=== PATIENT | male | born 1945 | race Caucasian/White ===

== ENCOUNTER 2017-01-02 15:10 | Inpatient (IN) ==
[2017-01-02] MEDS ORDERED: Naloxone 0.4 MG/ML INJ IVP PRN (20:39)
[2017-01-02] MEDS ORDERED: Ketotifen Fumarate OP PRN (20:45)
[2017-01-02] MEDS ORDERED: *HR* Dextrose 50 % in Water (Syg) 50 ML SYRINGE IVP PRN (20:47)
[2017-01-02] MEDS ORDERED: Dextrose Gel 15 GM PO PRN ×2 (20:47)
[2017-01-02] MEDS ORDERED: D5% in Water 1,000 ML IVC PRN (20:47)
[2017-01-02] MEDS: Insulin LISPRO 300 UNITS/3 ML VIAL SQ SCH (22:13)
[2017-01-02 22:30] LABS: Hemoglobin A1C 5.9 %
--- NOTE | 2017-01-02 22:55 | Internal Med History&Physical ---
<Reynaldo Treviño - Last Filed: 01/02/17 22:51> Date of Encounter: 01/02/17 Time of Encounter: 22:51 Assessment and Plan (1) CVA (cerebral vascular accident) Current visit: Yes Status: Acute New Rt sided numbness with Rt sided pronator drift. No other focal neuro deficits noted. CT head negative. Continue stroke protocol. 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 Continue statin at home dose Qualifiers: Hyperlipidemia type: unspecified Qualified Code(s): E78.5 - Hyperlipidemia , unspecified (3) Diabetes Current visit: Yes Status: Acute H/O DM, on metformin at home. Stop metformin while inpatient, start LSSIC with ac/hs accuchecks Qualifiers: Diabetes mellitus type: type 2 Diabetes mellitus complication status: with circulatory complication Diabetes mellitus complication detail: with other circulatory complications Diabetes mellitus [employer] insulin use: without [employer]orer [employer] use Qualified Code(s): E11.59 - Type 2 diabetes mellitus with other circulatory complications (4) HTN (hypertension) Current visit: Yes Status: Acute He reports being hypertensive over the last month. Hypertensive this admission. We will allow for some permissive hypertension for reperfusion following CVA. Hydralazine 10 mg every 6 hours when necessary for SBP greater than 165. Continue to trend blood pressure Qualifiers: Hypertension type: essential hypertension Qualified Code(s): I10 - Essential (primary) hypertension (5) CAD (coronary artery disease) Current visit: Yes Status: Acute H/o CAD, on ASA and statin at home. Continue ASA and statin at home dose. Consider adding BB for HTN management. Qualifiers: Coronary Disease-Associated Artery/Lesion type: [place] artery [place] vs. transplanted heart: [place] heart Associated angina: without angina Qualified Code(s): I25.10 - Atherosclerotic heart disease of [place] coronary artery without angina pectoris (6) DVT prophylaxis Current visit: Yes Status: Acute Heparin 5000 units subcutaneous every 12 hours Internal Medicine - H&P: HPI Chief complaint: CVA Admitted From: Home Plans for Post Hospital Care: Home History of present illness: Mr. Emmanuel is a 71 year old male with a PMH of CAD, DM, HLD, HTN, [place] in 2013 and CABG with 4 vessel bypass graft. Presents to [facility] today with right arm and right leg numbness and right arm weakness. Reports that throughout the last month he has had trouble controlling his blood pressure. This morning he awoke and at 0400 and noticed that he had some weakness in his right arm and numbness in both right arm and right leg. He did not immediately seek attention as he assumed it would go away on its own. However when the numbness persisted he decided to go to the ED seek further care. He denies any vision changes, gait changes, slurred speech, facial droop , fever, chills. Admits to headache which is now resolved, and dizziness. CT of the head negative for acute intracranial abnormalities Past Med Surg Social Fam HX - Past Medical History Medical history: coronary artery disease, diabetes, hyperlipidemia, hypertension , myocardial infarction Psychiatric history: no psych history - Past Surgical History Surgical History: coronary bypass (CABG) - Social History Smoking Status: Never smoker Smokeless Tobacco Status: No Alcohol use: none Drug use: none - Family History Mother Name: LEONEL EMMANUEL Living Status: Age at : 49 Cause of : DIABETIC COMA Father Name: MADELAINE EMMANUEL Living Status: Age at : 64 Cause of : HEART. IN SLEEP Hx Family Cardiac Disorders: Yes Internal Medicine - H&P: Meds Ketotifen Fumarate 1 drop OP TID PRN #5 drops 11/06/16 [Rx] Lovastatin [Mevacor] 20 mg PO DAILY 11/06/16 [History] Metformin HCl [Glucophage] 1,000 mg PO TID 11/06/16 [History] 3 Allergy/AdvReac Type Severity Reaction Status Date / Time No Known Allergies Allergy Verified 11/06/16 12:20 All Systems PM: A 10-system review of systems was performed and is negative for pertinent findings except as documented above in the HPI. - Constitutional Constitutional: no chills, no fever(s), no night sweats - EENT Eyes: no change in vision, no discharge, no pain, no photophobia - Cardiovascular Cardiovascular ROS IM: no chest pain, no diaphoresis, no dyspnea, no dyspnea on exertion, no edema, no irregular heart rhythm, no lightheadedness, no orthopnea , no palpitations, no syncope - Respiratory Respiratory: no cough, no dyspnea, no dyspnea on exertion, no wheezing, no pain on inspiration, no chest congestion, no excessive phlegm production, no pain with cough - Gastrointestinal Gastrointestinal: no abdominal pain, no diarrhea, no hematemesis, no hematochezia, no melena, no nausea, no vomiting - Musculoskeletal Musculoskeletal ROS IM: as per HPI, muscle weakness, numbness, no arthralgias, no limited range of motion, no muscle cramps, no tingling - Integumentary Integumentary IM: no rash, no unusual bruising - Neurological Neurological ROS: dizziness (Has since resolved), focal weakness (Right arm), headache(s) (Has since resolved), numbness, no abnormal gait, no abnormal movements, no abnormal speech, no disequilibrium, no lack of coordination, no loss of vision, no memory loss, no radicular pain, no restless legs, no tingling , no other visual disturbances - Psychiatric Psychiatric: no anxiety, no confusion, no difficulty concentrating - Constitutional Vitals: Temp Pulse Resp BP Pulse Ox 98 F 71 18 170/98 97 01/02/17 19:55 01/02/17 19:55 01/02/17 19:55 01/02/17 19:55 01/02/17 19:55 General appearance: Present: cooperative, A&O X 3, no acute distress, answers questions appropriately - Head Head exam: Present: atraumatic, normocephalic - Eye Eye exam: Present: EOMI, PERRL, conjuntiva pink, sclera anicteric Pupils: Present: PERRL - Neck Neck exam general surgery: Present: supple, trachea midline. Absent: lymphadenopathy - Respiratory Respiratory exam: Present: CTAB. Absent: accessory muscle use, rales, rhonchi, wheezes - Cardiovascular Cardiovascular exam: Present: RRR, +S1, +S2. Absent: diastolic murmur, gallop, rubs, systolic murmur - GI/Abdominal GI/Abdominal exam: Present: normal bowel sounds, soft, no peritoneal signs. Absent: distended, tenderness - Extremities Exam Extremities exam: Present: warm, radial pulses palpable and symmetrical. Absent : calf tenderness, cyanotic, pedal edema - Neurological Exam Neurological exam: Present: oriented X3, pronater drift (Right arm pronator drift). Absent: CN II-XII intact, strengths equal and symetr throughout, facial droop, speech deficit - Expanded Neurological Exam Neurological exam expanded: Present: protecting the airway. Absent: expressive aphasia, receptive aphasia Patient oriented to: Present: person, place Speech: Present: fluid speech Cranial Nerves: EOM's intact PM: Normal, gag reflex PM: Normal, nystagmus PM: Normal, tongue deviation PM: Normal Cerebellar function: finger to nose: Normal, heel to sarabia: Normal, Romberg: Normal Upper motor neuron: Babinski sign: Normal, Ortiz neglect: Normal, pronator drift : Normal, sensory extinction: Normal Neuro motor strength exam: LUE: 5, RUE: 5, LLE: 5, RLE: 5 Coma Scale Eye Opening: Spontaneous Coma Scale Motor Response: Obeys Commands Coma Scale Verbal Response: Oriented Coma Scale Total: 15 - Skin Skin exam: Present: dry, intact Internal Med - H&P Results - Diagnostic Studies CT scan - head Status: image reviewed by me Additional comments: No acute intracranial abnormalities noted <Carlos Eduardo Brown - Last Filed: 01/03/17 03:36> Date of Encounter: 01/03/17 Internal Medicine - H&P: HPI History of present illness: Mr. Emmanuel is a 71 year old male All Systems PM: A 10-system review of systems was performed and is negative for pertinent findings except as documented above in the HPI. - Constitutional Vitals: Temp Pulse Resp BP Pulse Ox 98.1 F 81 16 141/81 98 01/03/17 00:36 01/03/17 00:36 01/03/17 00:36 01/03/17 00:36 01/03/17 00:36 Internal Med - H&P Results - Impressions ITS Impressions Chest X-Ray 01/02/17 23:02 IMPRESSION: The sternotomy wires are unchanged in configuration when compared to the previous exam, without evidence of a radiographic fracture or migration. If there is concern for sternal pathology, consider further evaluation with CT. D/ / Esequiel Alvarez MD / Esequiel Alvarez MD Interpreting Provider: Esequiel Alvarez MD - Attending Attestation I have seen and examined the patient independently. I have discussed with ROOF FOREMAN Mr Treviño regarding the management plan. Agree with the documentation. Patient presented with right arm and right leg numbness and tingling. Symptoms started from [address] head negative. Symptoms time out of TPA window already. Will place patient on cardiac monitoring, antiplatelet, and statin. Check echo, duplex carotid, and MRI in a.m.
[2017-01-03 04:11] LABS: Basophils % 0.4 %; Eosinophils # 0.2 K/mcL (0.0-0.6); Eosinophils % 2.5 %; Hematocrit 37.4 % (37.5-50.1); Immature Granulocytes % 0.1 % (0-4); Lymphocytes # 1.9 K/mcL (0.6-4.6); Lymphocytes % 23.7 %; Mean Corpuscular HGB Conc 34.8 g/dL (31.6-35.5); Mean Corpuscular Hemoglobin 31.7 pg (28.0-33.3); Mean Corpuscular Volume 91.2 fL (83.0-100.0); Mean Platelet Volume 12.4 fL (9.4-12.4); Monocytes # 0.8 K/mcL (0.0-1.3); Monocytes % 9.9 %; Neutrophils # 5.2 K/mcL (1.6-8.9); Platelet Count 192 K/mcL (140-400); Red Cell Distribution Width 13.4 % (11.5-14.5); Segmented Neutrophils % 63.4 %
[2017-01-03 04:28] LABS: BUN/Creatinine Ratio 16 (6-26); Blood Urea Nitrogen 17 mg/dL (8-26); Calcium 9.5 mg/dL (8.6-10.8); Carbon Dioxide 21 mEq/L (19-29); Chloride 101 mEq/L (98-109); Chol/HDL Ratio 3.6 (0-4.9); Cholesterol 172 mg/dL (< 200); Glucose 115 mg/dL (70-99); HDL Cholesterol 48 mg/dL (40-59); LDL Cholesterol,Calculated 90 mg/dL (0-99); Osmolality,Calculated 276 (280-300); Potassium 3.9 mEq/L (3.5-4.5); Sodium 132 mEq/L (136-145); Triglycerides 170 mg/dL (< 150); eGFR For African Americans > 60 (> 60); eGFR For Non-African Americans > 60 (> 60)
[2017-01-03] MEDS: *HR* Heparin 5,000 UNIT/ML VIAL SQ SCH ×2 (05:56→17:33)
[2017-01-03] MEDS: Insulin LISPRO 300 UNITS/3 ML VIAL SQ SCH ×4 (09:58→21:25)
[2017-01-03] MEDS: Aspirin Enteric Coated 81 MG Tablet PO SCH (09:58)
--- NOTE | 2017-01-03 10:15 | Internal Med Progress Note ---
<Dariela Santana - Last Filed: 01/03/17 15:30> Date of Encounter: 01/03/17 Time of Encounter: 10:12 - Assessment and plan (1) CVA (cerebral vascular accident) Current Visit: Yes Status: Acute Assessment and plan: Acute CVA to the posterior thalamus Patient reports new right sided numbness. CT head negative MRI showed acute infarct posterior left thalamus. Chronic infarcts in caudal and putamen. Moderate chronic microvascular white ischemic disease. Cavernous malformations. Patient has significant risk factors: [place] CABGx4 2013, DM, HTN, HLD, Patient currently reports that the numbness has resolved besides some residual right medial knee numbness. He denies vision change. -Neurology consulted -carotid Doppler ordered -echo ordered -continue aspirin and statin -urinalysis ordered -continues telemetry -NIHSS Q4H -PT/OT Qualifiers: CVA mechanism: occlusion Laterality of affected vessel: unspecified Qualified Code(s): I63.219 - Cerebral infarction due to unspecified occlusion or stenosis of unspecified vertebral arteries (2) HLD (hyperlipidemia) Current Visit: Yes Status: Acute Assessment and plan: History of hyperlipidemia -Continue statin Qualifiers: Hyperlipidemia type: unspecified Qualified Code(s): E78.5 - Hyperlipidemia , unspecified (3) Diabetes Current Visit: Yes Status: Acute Assessment and plan: History of diabetes on metformin -low sliding scale insulin -continue to monitor glucose Qualifiers: Diabetes mellitus type: type 2 Diabetes mellitus complication status: with circulatory complication Diabetes mellitus complication detail: with other circulatory complications Diabetes mellitus snf insulin use: without snf use Qualified Code(s): E11.59 - Type 2 diabetes mellitus with other circulatory complications (4) HTN (hypertension) Current Visit: Yes Status: Acute Assessment and plan: Patient reports being hypertensive over the last month. -Holding lisinopril to allow for reperfusion following CVA -hydralazine as needed for SBP greater than 165 Qualifiers: Hypertension type: essential hypertension Qualified Code(s): I10 - Essential (primary) hypertension (5) CAD (coronary artery disease) Current Visit: Yes Status: Acute Assessment and plan: History of [place] CABGx4 2013. On aspirin and statin -Simvastatin and asa Qualifiers: Coronary Disease-Associated Artery/Lesion type: [place] artery [place] vs. transplanted heart: [place] heart Associated angina: without angina Qualified Code(s): I25.10 - Atherosclerotic heart disease of [place] coronary artery without angina pectoris (6) DVT prophylaxis Current Visit: Yes Status: Acute Assessment and plan: Heparin - Subjective Interval history: Alert and oriented times 3 Laying down comfortably in bed in no acute distress he reports right medial knee numbness. She denies change in vision, headache, chest pain, shortness of breath. He has no complaints at this time he is requesting food as soon as he made - Constitutional Vitals: Temp Pulse Resp BP Pulse Ox 97.8 F 76 17 168/63 100 01/03/17 07:00 01/03/17 07:00 01/03/17 07:00 01/03/17 07:09 01/03/17 07:00 General appearance: Present: cooperative, A&O X 3, no acute distress, answers questions appropriately Exam: Gen.: Vitals noted. No acute distress. AAOx3 HEENT: oropharynx clear, Normocephalic, atraumatic Cardiac: RRR, no murmur, +S1/S2 Pulmonary: CTA bilaterally, no wheezes, rales or rhonchi, equal chest expansion Abdomen: soft, nontender, Bowel sounds noted, no guarding Extremities: no BLE edema, nontender calf, no cyanosis or clubbing Neuro: A&Ox3, moves all extremities, no focal deficits, numbness on right medial knee, sensation intact, strength 5/5 Psych: Appropriate mood and behavior Internal Medicine: Result - Labs CBC & Chem 7: 01/03/17 03:26 01/03/17 03:26 Labs: Short CBC 01/03/17 Range/Units 03:26 WBC 8.1 (4.3-11.1) K/mcL Hgb 13.0 (12.9-16.9) g/dL Hct 37.4 L (37.5-50.1) % Plt Count 192 (140-400) K/mcL Neutrophils # 5.2 (1.6-8.9) K/mcL BMP 01/03/17 03:26 Sodium 132 L Potassium 3.9 Chloride 101 Carbon Dioxide 21 BUN 17 Creatinine 1.08 Glucose 115 H Calcium 9.5 - Impressions Impressions Chest X-Ray 01/02/17 23:02 IMPRESSION: The sternotomy wires are unchanged in configuration when compared to the previous exam, without evidence of a radiographic fracture or migration. If there is concern for sternal pathology, consider further evaluation with CT. D/ / Esequiel Alvarez MD / Esequiel Alvarez MD Interpreting Provider: Esequiel Alvarez MD Brain MRI 01/03/17 20:38 IMPRESSION: 1. There is an acute infarct involving the posterior left thalamus, likely contributing to the patient's right-sided numbness. 2. Chronic infarcts are noted in the caudate heads and putamen. Moderate chronic microvascular white matter ischemic disease is noted supratentorially. 3. There is an intra-axial, nonenhancing lesion noted in the right cerebral peduncle, corresponding to the calcified lesion noted on the previous exam. This is compatible with a cavernous malformation. 4. No other intracranial mass is seen. D/ / 01/03/2017 09:15:17 Esvin Parada MD / [place] Interpreting Provider: Esvin Parada MD Consult Discharge Plan - Plan Referrals: Keira Rosas, PHOTOGRAPHIC PROCESS WORKER [Primary Care Provider] - <Maycol Persaud - Last Filed: 01/03/17 16:05> Date of Encounter: 01/03/17 - Constitutional Vitals: Temp Pulse Resp BP Pulse Ox 97.8 F 80 17 170/89 95 01/03/17 07:00 01/03/17 15:00 01/03/17 15:00 01/03/17 15:00 01/03/17 15:00 Internal Medicine: Result - Labs CBC & Chem 7: 01/03/17 03:26 01/03/17 03:26 Labs: Short CBC 01/03/17 Range/Units 03:26 WBC 8.1 (4.3-11.1) K/mcL Hgb 13.0 (12.9-16.9) g/dL Hct 37.4 L (37.5-50.1) % Plt Count 192 (140-400) K/mcL Neutrophils # 5.2 (1.6-8.9) K/mcL BMP 01/03/17 03:26 Sodium 132 L Potassium 3.9 Chloride 101 Carbon Dioxide 21 BUN 17 Creatinine 1.08 Glucose 115 H Calcium 9.5 - Impressions Impressions Chest X-Ray 01/02/17 23:02 IMPRESSION: The sternotomy wires are unchanged in configuration when compared to the previous exam, without evidence of a radiographic fracture or migration. If there is concern for sternal pathology, consider further evaluation with CT. D/ / Esequiel Alvarez MD / Esequiel Alvarez MD Interpreting Provider: Esequiel Alvarez MD Head CTA 01/03/17 13:00 IMPRESSION: Calcified atherosclerotic plaque in the cavernous internal carotid arteries results in mild bilateral cavernous ICA stenosis. Otherwise, unremarkable CTA of the head. D/ / 01/03/2017 13:59:14 Joseph Hess MD / Elida Hilton Interpreting Provider: Joseph Hess MD Brain MRI 01/03/17 20:38 IMPRESSION: 1. There is an acute infarct involving the posterior left thalamus, likely contributing to the patient's right-sided numbness. 2. Chronic infarcts are noted in the caudate heads and putamen. Moderate chronic microvascular white matter ischemic disease is noted supratentorially. 3. There is an intra-axial, nonenhancing lesion noted in the right cerebral peduncle, corresponding to the calcified lesion noted on the previous exam. This is compatible with a cavernous malformation. 4. No other intracranial mass is seen. D/ / 01/03/2017 09:15:17 [facility] Provider: Esvin Parada MD - Attending Attestation neurology recommendations appreciated consider adding Plavix vs switching to Aggrenox as the patient has been very compliant in the past with aspirin and still developed a CVA I examined this patient and my medical decision-making was reviewed with the Resident Physician. I agree with the documented findings, disposition and treatment plan as described except to the extent set forth below.
--- NOTE | 2017-01-03 10:29 | Neurology - Consult Note ---
<Abundio Hubbard - Last Filed: 01/03/17 11:55> Date of Encounter: 01/03/17 Time of Encounter: 09:45 Assessment and Plan (1) CVA (cerebral vascular accident) Status: Acute Patient found to have acute CVA the posterior thalamus, corresponding to patient describes symptoms. Physical/neuro examination unremarkable except for mild paresthesia in the bottom of his right foot. MRI confirmation of stroke seen. We will likely need to assess potential source of CVA given old infarcts have been seen. Given the location this likely represents lacunar infarct and would recommend aggressive risk factor reduction. Recommend aggressive risk factor reductions Increase to full aspirin and statin PT/OT if needed Recommend cardiac telemetry to assess for occult arrhythmia Recommend echocardiogram and carotid Dopplers to try to identify source Will obtain CTA Qualifiers: Laterality of affected vessel: unspecified (2) Cavernous malformation Status: Acute Cavernous malformation incidentally found on CT examination and further clarified with MRI with and without contrast. Patient appears a symptomatic from this at this time. Likely will require follow-up for surveillance in the future. History of Present Illness Chief complaint: Right Sided Numbness HPI: Mr. Emmanule is a 71 year old male with past medical history of coronary artery disease with previous ND, diabetes mellitus, hypertension, and hyperlipidemia who was transferred to [place] from the [facility] due to concern of acute CVA. Patient reports that he woke up yesterday morning on 01/02/17 at about 2 in the morning and noticed having significant right-sided weakness in his upper and lower extremities. He got ready and went to work that day and had been worked for 5 hours before saying something to one of his coworkers. He tried to rest with little improvement of symptoms decided best to present to the hospital. He denies having any weakness, facial asymmetry, confusion, or slurred speech. She reports having only mild headache. A CT examination was performed in the [facility] that showed no acute abnormality, a chronic moderate ischemic white matter changes, old small infarcts, and 15 mm calcified meningioma. Over the course the patient reports having resolution of much of his symptoms, but still states he has some residual numbness in the bottom of his foot. He continues to deny having any focal weakness, vision changes, and only mild headache. An MRI was performed with and without contrast that showed acute infarct involving the posterior left thalamus, chronic infarcts in the caudate heads and putamen, and intra-axial, nonenhancing lesion in the right cerebral peduncle likely represents cavernous malformation, corresponding to location of the previous lesion seen. Past Med Surg Social Fam HX - Past Medical History Medical history: coronary artery disease, diabetes, hyperlipidemia, hypertension , myocardial infarction Psychiatric history: no psych history - Past Surgical History Surgical History: coronary bypass (CABG) - Social History Smoking Status: Never smoker Smokeless Tobacco Status: No Alcohol use: none Drug use: none - Family History Mother Name: LEONEL EMMANUEL Living Status: Age at : 49 Cause of : DIABETIC COMA Father Name: MADELAINE EMMANUEL Living Status: Age at : 64 Cause of : HEART. IN SLEEP Hx Family Cardiac Disorders: Yes Medications and Allergies Lovastatin [Mevacor] 20 mg PO DAILY 11/06/16 [History] Metformin HCl [Glucophage] 1,000 mg PO BID 11/06/16 [History] Aspirin 81 mg PO DAILY 01/03/17 [History] Carvedilol 12.5 mg PO BID 01/03/17 [History] Ibuprofen [Motrin] 200 mg PO Q4-6H PRN 01/03/17 [History] Lisinopril [Zestril] 20 mg PO DAILY 01/03/17 [History] Metformin HCl [Glucophage] 500 mg PO 1200 01/03/17 [History] Mv-Mn/FA/Vit K/Lycop/Lut/Coq10 [Daily Multivitamin Capsule] 1 tab PO DAILY 01/03 [History] 3 Allergy/AdvReac Type Severity Reaction Status Date / Time No Known Allergies Allergy Verified 11/06/16 12:20 Review of Systems: Gen: Denies fever, denies chills, denies weakness CV: Denies chest pain, denies palpitations Resp: Denies shortness of breath, MSK: denies arthralgia, denies muscle weakness Neuro: Reports mild headache, denies confusion, denies focal weakness, reports resolving right-sided numbness, denies tingling, denies vision changes Skin: Denies bruising, denies rash Physical Examination - Vital Signs Vital Signs: Initial Vital Signs Temp Pulse Resp BP Pulse Ox 97.9 F 71 18 169/94 97 01/02/17 17:05 01/02/17 17:05 01/02/17 17:05 01/02/17 17:05 01/02/17 17:05 - Exam Exam: General: Cooperative, pleasant, no acute distress, alert and oriented 3, answers questions appropriately HEENT: Normocephalic, atraumatic, neck supple, trachea midline, Conjunctiva pink , sclera anicteric, EOMI, PERRL, oral mucosa moist, no orophargeal erythema or exudates Respiratory: No accessory muscle usage, clear to auscultation bilaterally, no wheezes/rhonchi/rales appreciated Cardiovascular: Regular rate and rhythm, S1 and S2 present, no murmurs/rubs/ gallops/clicks appreciated Extremities: No calf tenderness, noncyanotic, no pedal edema appreciated, warm, lower extremity pulses palpable and symmetrical Neurological: Alert and oriented 3, no facial droop, no focal deficits, cranial nerves II through XII grossly intact bilaterally, rapid alternating movements smooth with good earline, finger to nose smooth and accurate, sensation reduced in right big toe and bottom of right foot, normal otherwise, strength 5/5 in upper and lower extremities bilaterally, DTRs 2/4 in Achilles, patellar, brachioradialis, biceps, and triceps, Romberg normal, gait smooth without limp Skin: Dry, intact, normal color Results - Laboratory Findings CBC and BMP: 01/03/17 03:26 01/03/17 03:26 Abnormal lab findings: Abnormal lab results RBC 4.10 M/mcL (4.19-5.50) L 01/03/17 03:26 Hct 37.4 % (37.5-50.1) L 01/03/17 03:26 Sodium 132 mEq/L (136-145) L 01/03/17 03:26 Glucose 115 mg/dL (70-99) H 01/03/17 03:26 POC Glucose 109 (58-89) H 01/02/17 21:48 Hemoglobin A1c 5.9 % (-5.6) H 01/02/17 21:50 Calculated Osmolality 276 (280-300) L 01/03/17 03:26 Triglycerides 170 mg/dL (< 150) H 01/03/17 03:26 VLDL Cholesterol, Calc 34 mg/dL (< 31) H 01/03/17 03:26 Consult Discharge Plan - Plan Instructions: Lovastatin (By mouth), Aspirin (By mouth), Ischemic Stroke (GEN) Additional Instructions: Continue home medications such as aspirin and lovastatin follow-up with neurology in 2 to 3 weeks returned hospital should you develop new numbness and tingling, weakness, shortness of breath, chest pain, confusion Referrals: Keira Rosas CNP [Primary Care Provider] - Maria Elena Bryan MD [Partnered Physician] - <Maria Elena Bryan - Last Filed: 01/06/17 08:14> Date of Encounter: 01/06/17 Assessment and Plan (1) CVA (cerebral vascular accident) Status: Acute Qualifiers: CVA mechanism: occlusion Laterality of affected vessel: unspecified Qualified Code(s): I63.539 - Cerebral infarction due to unspecified occlusion or stenosis of unspecified posterior cerebral artery (2) Cavernous malformation Status: Acute History of Present Illness HPI: Mr. Emmanuel is a 71 year old male All Systems: A 10-system review of systems was performed and is negative for pertinent findings except as documented above in the HPI. Physical Examination - Vital Signs Vital Signs: Initial Vital Signs Temp Pulse Resp BP Pulse Ox 97.9 F 71 18 169/94 97 01/02/17 17:05 01/02/17 17:05 01/02/17 17:05 01/02/17 17:05 01/02/17 17:05 Results - Laboratory Findings CBC and BMP: 01/04/17 05:25 01/04/17 05:25 Abnormal lab findings: Abnormal lab results Sodium 131 mEq/L (136-145) L 01/04/17 05:25 Glucose 151 mg/dL (70-99) H 01/04/17 05:25 POC Glucose 175 (58-89) H 01/04/17 11:54 Hemoglobin A1c 5.9 % (-5.6) H 01/02/17 21:50 Calculated Osmolality 278 (280-300) L 01/04/17 05:25 Triglycerides 170 mg/dL (< 150) H 01/03/17 03:26 VLDL Cholesterol, Calc 34 mg/dL (< 31) H 01/03/17 03:26
--- NOTE | 2017-01-03 15:47 | Neurology - Consult Note ---
Date of Encounter: 01/03/17 Time of Encounter: 15:37 Assessment and Plan (1) CVA (cerebral vascular accident) Current Visit: Yes Status: Acute Patient has likely left thalamic infarct, likely secondary to small vessel etiology. CTA of brain showed no significant intracranial significant stenosis. Will await echocardiography and carotid artery duple. Keep him on Aspirin 81mg daily, Continue statin therapy. Qualifiers: CVA mechanism: occlusion Laterality of affected vessel: unspecified Qualified Code(s): I63.219 - Cerebral infarction due to unspecified occlusion or stenosis of unspecified vertebral arteries (2) Cavernous malformation Current Visit: Yes Status: Acute This appears to be an incidental finding. The vascular lesion is at the right cerebral peduncle which would cause left sided weakness or 3 th nerve palsy which he does not have. There is no evidence of cerebral hemorrhage. Will follow up with him as an outpatient in 2-3 weeks. and next step would be referal to [facility] neurosurgery but it is my opinion that no invasive intervention is needed but close clinical monitoring History of Present Illness Chief complaint: right sided paresthesia HPI: Mr. Emmanuel is a 71 year old male with PMH significant for HTN, cardiomyopathy , HTN, DM, hyperlipidemia, CAD, s/p CABG who developed acute onset of right leg numbness. This occurred one day prior to admission. He woke up early that day and felt numbness to his right leg, and a little bit to his right hand as well. However, he woke up early and went to work anyway for 5 hours. He noticed some frontal headache at the time. He went back home and tried to sleep away the way and apparently the symptoms did not go away when he woke up. He went to [facility] and had CT of head showed possible meningioma at the right cereral peduncle. MRI of brain was completed and showed left thalamic infarct. MRI of brain MR/MR head/brain wo/w con IMPRESSION: 1. There is an acute infarct involving the posterior left thalamus, likely contributing to the patient's right-sided numbness. 2. Chronic infarcts are noted in the caudate heads and putamen. Moderate chronic microvascular white matter ischemic disease is noted supratentorially. 3. There is intra-axial, nonenhancing lesion noted in the right cerebral peduncle, corresponding to the calcified lesion noted on the previous exam. This is compatible with a cavernous malformation. 4. No other intracranial mass is seen. CT/CT angio head IMPRESSION: Calcified atherosclerotic plaque in the cavernous internal carotid arteries results in mild bilateral cavernous ICA stenosis. Otherwise, unremarkable CTA of the head. Past Med Surg Social Fam HX - Past Medical History Medical history: coronary artery disease, diabetes, hyperlipidemia, hypertension , myocardial infarction Psychiatric history: no psych history - Past Surgical History Surgical History: coronary bypass (CABG) - Social History Smoking Status: Never smoker Smokeless Tobacco Status: No Alcohol use: none Drug use: none - Family History Mother Name: LEONEL EMMANUEL Living Status: Age at : 49 Cause of : DIABETIC COMA Father Name: MADELAINE EMMANUEL Living Status: Age at : 64 Cause of : HEART. IN SLEEP Hx Family Cardiac Disorders: Yes Medications and Allergies Lovastatin [Mevacor] 20 mg PO DAILY 11/06/16 [History] Metformin HCl [Glucophage] 1,000 mg PO BID 11/06/16 [History] Aspirin 81 mg PO DAILY 01/03/17 [History] Carvedilol [Carvedilol] 12.5 mg PO BID 01/03/17 [History] Ibuprofen [Motrin] 200 mg PO Q4-6H PRN 01/03/17 [History] Lisinopril [Zestril] 20 mg PO DAILY 01/03/17 [History] Metformin HCl [Glucophage] 500 mg PO 1200 01/03/17 [History] Mv-Mn/FA/Vit K/Lycop/Lut/Coq10 [Daily Multivitamin Capsule] 1 tab PO DAILY 01/03 [History] 3 Allergy/AdvReac Type Severity Reaction Status Date / Time No Known Allergies Allergy Verified 11/06/16 12:20 All Systems: A 10-system review of systems was performed and is negative for pertinent findings except as documented above in the HPI. Physical Examination - Vital Signs Vital Signs: Initial Vital Signs Temp Pulse Resp BP Pulse Ox 97.9 F 71 18 169/94 97 01/02/17 17:05 01/02/17 17:05 01/02/17 17:05 01/02/17 17:05 01/02/17 17:05 - Constitutional General appearance: comfortable - Neurologic Sensorimotor examination: intact Detailed motor examination: full strength in all major muscle groups Motor examination - right side: 5/5: deltoids, biceps, triceps, wrist flexion, wrist extension, utility driver, hip flexors, tibialis Anterior, quadriceps, toe extension (EHL), plantarflexion Motor examination - left side: 07/19: deltoids, biceps, triceps, wrist flexion, wrist extension, hip flexors, utility driver, quadriceps, tibialis Anterior, toe extension (EHL), plantarflexion Detailed sensory examination: intact Posture: other (None) Reflex and gait examination: intact Reflexes: Biceps: 1+, Triceps: 1+, Brachioradialis: 1+, Patella: 1+, Achilles: 1 + Mental Status Examination: awake, alert, oriented to person, oriented to place, oriented to time, follows commands appropriately, answers questions appropriately, no agnosia, no aphasia, no aproxia Cranial nerve examination: PERRL, EOMI, visual faria intact, corneal reflexes brisk symmetrically, sensory to face intact, mastication intact, no facial asymmetry is present, no dysarthria, hearing is intact symmetrically, soft palate elevates bilaterally upon phonation, gag reflex intact, flexes SCM and trapezius muscles symmetrically with full power, tongue protrudes midline, no atrophy or facial fasiculations present Results - Laboratory Findings CBC and BMP: 01/03/17 03:26 01/03/17 03:26 Abnormal lab findings: Abnormal lab results RBC 4.10 M/mcL (4.19-5.50) L 01/03/17 03:26 Hct 37.4 % (37.5-50.1) L 01/03/17 03:26 Sodium 132 mEq/L (136-145) L 01/03/17 03:26 Glucose 115 mg/dL (70-99) H 01/03/17 03:26 POC Glucose 157 (58-89) H 01/03/17 12:33 Hemoglobin A1c 5.9 % (-5.6) H 01/02/17 21:50 Calculated Osmolality 276 (280-300) L 01/03/17 03:26 Triglycerides 170 mg/dL (< 150) H 01/03/17 03:26 VLDL Cholesterol, Calc 34 mg/dL (< 31) H 01/03/17 03:26 Consult Discharge Plan - Plan Referrals: Keira Rosas, SERVICE RIG OPERATOR [Primary Care Provider] -
[2017-01-03] MEDS ORDERED: Melatonin 3 MG TABLET PO PRN (16:56)
[2017-01-04 05:39] LABS: Basophils % 0.5 %; Eosinophils # 0.2 K/mcL (0.0-0.6); Eosinophils % 2.5 %; Hematocrit 40.4 % (37.5-50.1); Hemoglobin 14.3 g/dL (12.9-16.9); Immature Granulocytes % 0.4 % (0-4); Lymphocytes # 2.1 K/mcL (0.6-4.6); Lymphocytes % 27.2 %; Mean Corpuscular HGB Conc 35.4 g/dL (31.6-35.5); Mean Corpuscular Hemoglobin 32.1 pg (28.0-33.3); Mean Corpuscular Volume 90.6 fL (83.0-100.0); Mean Platelet Volume 11.5 fL (9.4-12.4); Monocytes # 0.7 K/mcL (0.0-1.3); Monocytes % 8.8 %; Neutrophils # 4.8 K/mcL (1.6-8.9); Platelet Count 201 K/mcL (140-400); Red Blood Count 4.46 M/mcL (4.19-5.50); Red Cell Distribution Width 13.3 % (11.5-14.5); Segmented Neutrophils % 60.6 %
[2017-01-04 05:54] LABS: BUN/Creatinine Ratio 18 (6-26); Blood Urea Nitrogen 20 mg/dL (8-26); Calcium 9.7 mg/dL (8.6-10.8); Carbon Dioxide 20 mEq/L (19-29); Chloride 100 mEq/L (98-109); Glucose 151 mg/dL (70-99); Osmolality,Calculated 278 (280-300); Potassium 4.1 mEq/L (3.5-4.5); Sodium 131 mEq/L (136-145); eGFR For African Americans > 60 (> 60); eGFR For Non-African Americans > 60 (> 60)
[2017-01-04] MEDS: *HR* Heparin 5,000 UNIT/ML VIAL SQ SCH (06:03)
[2017-01-04 06:55] VITALS: BP 147/77
--- NOTE | 2017-01-04 08:53 | Discharge Summary ---
<Dariela Santana - Last Filed: 01/04/17 13:14> Date of Encounter: 01/04/17 Time of Encounter: 08:51 - Discharge Diagnosis (1) CVA (cerebral vascular accident) Priority: Primary Status: Acute Comments: Acute CVA to the posterior thalamus Patient reports new right sided numbness. CT head negative MRI showed acute infarct posterior left thalamus. Chronic infarcts in caudal and putamen. Moderate chronic microvascular white ischemic disease. Cavernous malformations. Patient has significant risk factors: [place] CABGx4 2013, DM, HTN, HLD, Patient currently reports that the numbness has resolved besides some residual right medial knee numbness. He denies vision change. Qualifiers: CVA mechanism: occlusion Laterality of affected vessel: unspecified Qualified Code(s): I63.539 - Cerebral infarction due to unspecified occlusion or stenosis of unspecified posterior cerebral artery (2) HLD (hyperlipidemia) Priority: Secondary Status: Acute Qualifiers: Hyperlipidemia type: unspecified Qualified Code(s): E78.5 - Hyperlipidemia , unspecified (3) Diabetes Priority: Secondary Status: Acute Qualifiers: Diabetes mellitus type: type 2 Diabetes mellitus complication status: with circulatory complication Diabetes mellitus complication detail: with other circulatory complications Diabetes mellitus marine oil terminal superintendent insulin use: without marine oil terminal superintendent use Qualified Code(s): E11.59 - Type 2 diabetes mellitus with other circulatory complications (4) HTN (hypertension) Priority: Secondary Status: Acute Qualifiers: Hypertension type: essential hypertension Qualified Code(s): I10 - Essential (primary) hypertension (5) CAD (coronary artery disease) Priority: Secondary Status: Acute Qualifiers: Coronary Disease-Associated Artery/Lesion type: [place] artery [place] vs. transplanted heart: [place] heart Associated angina: without angina Qualified Code(s): I25.10 - Atherosclerotic heart disease of [place] coronary artery without angina pectoris (6) DVT prophylaxis Priority: Secondary Status: Acute - Discharge Medications Home Medications: Lovastatin [Mevacor] 20 mg PO DAILY 11/06/16 [History] Metformin HCl [Glucophage] 1,000 mg PO BID 11/06/16 [History] Aspirin 81 mg PO DAILY 01/03/17 [History] Carvedilol 12.5 mg PO BID 01/03/17 [History] Ibuprofen [Motrin] 200 mg PO Q4-6H PRN 01/03/17 [History] Lisinopril [Zestril] 20 mg PO DAILY 01/03/17 [History] Metformin HCl [Glucophage] 500 mg PO 1200 01/03/17 [History] Mv-Mn/FA/Vit K/Lycop/Lut/Coq10 [Daily Multivitamin Capsule] 1 tab PO DAILY 01/03 [History] Allergies/Adverse Reactions: 3 Allergy/AdvReac Type Severity Reaction Status Date / Time No Known Allergies Allergy Verified 11/06/16 12:20 Procedures/tests Complete & Pending: Procedures Performed prior 72 hours Category Date Time Status CTA Head [CT angio head] [CT] Routine Cat Scan 01/03/17 13:00 Draft MR head/brain wo/w con [MR] Routine MRI 01/03/17 20:38 Completed ECG 12 lead ECG [ECG] Stat Y 01/02/17 20:44 Ordered EV carotid duplex imaging BI Routine Y 01/02/17 20:45 Completed EV echocardiogram Routine Y 01/03/17 11:52 Completed Date of admission: 01/02/17 16:49 Primary care physician: Keira Rosas CNP Consults: 01/02/17 20:39 Consult to Neurology [CONS] Routine Consulting Provider: [facility] Reason for Consult: cva Call Completed: No 01/02/17 20:41 Consult to Occupational Therapy [CONS] Routine Comment: Evaluate, develop and implement POC Reason for Consult: CVA Consult to Physical Therapy [CONS] Routine Comment: Evaluate, develop and implement POC Reason for Consult: CVA Discharging clinician: Maycol Persaud - Patient Status Disposition: Home, Self-Care Condition: Good Functional capacity at discharge: independent ambulation Overall status at discharge: patient is back to baseline - Discharge Instructions Follow Up With: Keira Rosas CNP [Primary Care Provider] - Maria Elena Bryan MD [Partnered Physician] - Additional Instructions: Continue home medications such as aspirin and lovastatin follow-up with neurology in 2 to 3 weeks returned hospital should you develop new numbness and tingling, weakness, shortness of breath, chest pain, confusion - Diet and Activity Activity: resume usual activities as tolerated Diet: regular diet Hospital course: Mr. Snyder is a 71 year old male with a PMH of CAD, DM, HLD, HTN, [place] in 2013 and CABG with 4 vessel bypass graft. Presents to [facility] today with right arm and right leg numbness and right arm weakness. Reports that throughout the last month he has had trouble controlling his blood pressure. This morning he awoke and at 0400 and noticed that he had some weakness in his right arm and numbness in both right arm and right leg. He did not immediately seek attention as he assumed it would go away on its own. However when the numbness persisted he decided to go to the ED seek further care. He denies any vision changes, gait changes, slurred speech, facial droop , fever, chills. Admits to headache which is now resolved, and dizziness. CT of the head negative for acute intracranial abnormalities. He was admitted the hospital. He was continued on status and an aspirin. He was found to have an Acute CVA to the posterior thalamus. MRI showed acute infarct posterior left thalamus. Chronic infarcts in caudal and putamen. Moderate chronic microvascular white ischemic disease. Cavernous malformations. Neurology was consulted and evaluated the patient. The patient reported that the numbness has resolved besides some residual right medial knee numbness. He denies vision change. Carotid Doppler was normal. Echocardiogram showed LVEF 50-55%, mild diastolic dysfunction, no intracardiac shunt. CTA head showed mild bilateral cavernous ICA stenosis. The patient upon discharge exhibited no focal deficits. He denied weakness, change in vision, generalized numbness, chest pain, shortness of breath, confusion. He is to follow up with neurology outpatient in 2 to 3 weeks. He was instructed to continue taking aspirin and his cholesterol medication. The patient was instructed to return to the hospital should he develop new confusion, weakness, numbness, shortness of breath, chest pain. The patient was alert and oriented times 3 with full capacity. He stayed clear understanding of the treatment plan and all questions were answered. - Time Spent with Patient Total time spent providing and/or coordinating discharge services: Greater than 30 minutes (40 minutes) - Constitutional Vitals: Temp Pulse Resp BP Pulse Ox 98.3 F 81 15 147/77 96 01/04/17 06:50 01/04/17 06:50 01/04/17 06:50 01/04/17 06:50 01/04/17 06:50 General appearance: Present: cooperative, A&O X 3, no acute distress, answers questions appropriately Exam: Gen.: Vitals noted. No acute distress. AAOx3 HEENT: oropharynx clear, Normocephalic, atraumatic Neck: Supple. No adenopathy. Cardiac: RRR, no murmur, +S1/S2 Pulmonary: CTA bilaterally, no wheezes, rales or rhonchi, equal chest expansion Abdomen: soft, nontender, Bowel sounds noted, no guarding Extremities: no BLE edema, nontender calf, no cyanosis or clubbing Neuro: A&Ox3, moves all extremities, no focal deficits, sensation intact, strength 5/5, numbness palm of hand and sole of foot Psych: Appropriate mood and behavior <Maycol Persaud H - Last Filed: 01/04/17 13:30> Date of Encounter: 01/04/17 Procedures/tests Complete & Pending: Procedures Performed prior 72 hours Category Date Time Status CTA Head [CT angio head] [CT] Routine Cat Scan 01/03/17 13:00 Draft MR head/brain wo/w con [MR] Routine MRI 01/03/17 20:38 Completed ECG 12 lead ECG [ECG] Stat Y 01/02/17 20:44 Ordered EV carotid duplex imaging BI Routine Y 01/02/17 20:45 Completed EV echocardiogram Routine Y 01/03/17 11:52 Completed Date of admission: 01/02/17 16:49 Primary care physician: Keira Rosas CNP Consults: 01/02/17 20:39 Consult to Neurology [CONS] Routine Consulting Provider: [facility] Reason for Consult: cva Call Completed: No 01/02/17 20:41 Consult to Occupational Therapy [CONS] Routine Comment: Evaluate, develop and implement POC Reason for Consult: CVA Consult to Physical Therapy [CONS] Routine Comment: Evaluate, develop and implement POC Reason for Consult: CVA Hospital course: Mr. Snyder is a 71 year old male - Time Spent with Patient Total time spent providing and/or coordinating discharge services: - Constitutional Vitals: Temp Pulse Resp BP Pulse Ox 98.3 F 81 15 147/77 96 01/04/17 06:50 01/04/17 06:50 01/04/17 06:50 01/04/17 06:50 01/04/17 06:50 - Attending Attestation Neurology recommended to continue aspirin and follow up as an outpatient I examined this patient and my medical decision-making was reviewed with the Resident Physician. I agree with the documented findings, disposition and treatment plan as described except to the extent set forth below.
[2017-01-04] MEDS: Insulin LISPRO 300 UNITS/3 ML VIAL SQ SCH (09:23)
[2017-01-04] MEDS: Aspirin Enteric Coated 81 MG Tablet PO SCH (09:23)
== END 2017-01-04 15:26 | disposition home or self-care (01) | DRG 64 ==
LOC: SUATTDRO 16:49 → 2NENU 16:49
PROVIDERS: ADMIT Internal Medicine; ATTEND Internal Medicine

== ENCOUNTER 2018-09-24 12:22 | Inpatient (IN) ==
[2018-09-24] MEDS ORDERED: traMADol 50 MG TABLET PO PRN (15:15)
[2018-09-24] MEDS ORDERED: Naloxone 0.4 MG/ML INJ IVP PRN (15:15)
[2018-09-24] MEDS ORDERED: *HR* Dextrose 50 % in Water (Syg) 50 ML SYRINGE IVP PRN (15:22)
[2018-09-24] MEDS ORDERED: Dextrose Gel 15 GM/37.5 ML TUBE PO PRN ×2 (15:22)
[2018-09-24] MEDS ORDERED: D5% in Water 1,000 ML IVC PRN (15:22)
[2018-09-24] MEDS ORDERED: Ringers Solution, Lactated 1,000 ML IVC SCH (15:30)
--- NOTE | 2018-09-24 15:56 | Internal Med History&Physical ---
Date of Encounter: 09/24/18 Time of Encounter: 15:49 Internal Medicine - H&P: HPI Chief complaint: left sided weakness Admitted From: Home Plans for Post Hospital Care: Home History of present illness: Mr. Snyder is a 73 year old male PMH of CVA in 2017, HTN, HLD, and DM. Patient transferred to the hospital from [place] where he presented due to left sided weakness. Patient reports yesterday during the day he did some work on the sun around his house. In the afternoon after he was done with those chores he felt light headed and weak but he thought it was related to being on the sun most of the day. States that around 6pm he started feeling left sided weakness on the upper and lower extremities. Denies slurred speech, face droop or palpitations. Stated that today morning as the left sided weakness did no improved he decided to go the ED. He report he is left handed and because of the weakness of the left side he cannot even write his name. Stated the weakness on the lower extremity has slightly improved. Denies nausea, vomiting but reports slight headache. Denies chest pain, shortness of breath or abdominal pain. Past Med Surg Social Fam HX - Past Medical History Medical history: coronary artery disease, CVA, diabetes, hyperlipidemia, hypertension, myocardial infarction Psychiatric history: no psych history - Past Surgical History Surgical History: coronary bypass (CABG) - Social History Smoking Status: Never smoker Smokeless Tobacco Status: No Alcohol use: none Drug use: none - Family History Mother Living Status: Father Living Status: Hx Family Cardiac Disorders: Yes Internal Medicine - H&P: Meds Lovastatin [Mevacor] 20 mg PO DAILY 11/06/16 [History] Aspirin 81 mg PO DAILY 01/03/17 [History] Carvedilol 12.5 mg PO BID 01/03/17 [History] Ibuprofen [Motrin] 200 mg PO Q4-6H PRN 01/03/17 [History] Lisinopril [Zestril] 20 mg PO BID 01/03/17 [History] Mv-Mn/FA/Vit K/Lycop/Lut/Coq10 [Daily Multivitamin Capsule] 1 tab PO DAILY 01/03/17 [History] Acetaminophen/Diphenhydramine [Percogesic 325-12.5 mg Tablet] 2 each PO HS 09/24/18 [History] Aspirin [Lo-Dose Aspirin EC] 81 mg PO DAILY 09/24/18 [History] L. Acidophilus/Pectin, [place] [Acidophilus Probiotic Capsule] 1 each PO DAILY 09/24/18 [History] Sitagliptin Phosphate [Januvia] 50 mg PO DAILY 09/24/18 [History] Allergy/AdvReac Type Severity Reaction Status Date / Time No Known Allergies Allergy Verified 09/24/18 08:42 All Systems PM: A 10-system review of systems was performed and is negative for pertinent findings except as documented above in the HPI. - Constitutional Constitutional: weakness (left sided. ), no chills, no fever(s) - EENT Eyes: no blurry vision, no irritation Nose, mouth and throat: no dry mouth, no mouth pain - Breasts Breasts: no mass, no pain - Cardiovascular Cardiovascular ROS IM: lightheadedness, no chest pain, no dyspnea, no irregular heart rhythm, no orthopnea, no palpitations - Respiratory Respiratory: no cough, no wheezing - Gastrointestinal Gastrointestinal: no abdominal pain, no nausea, no vomiting - Genitourinary Genitourinary ROS male: no dysuria, no hematuria, no nocturia, no urinary frequency, no urinary incontinence, no urinary urgency - Musculoskeletal Musculoskeletal ROS IM: no back pain, no numbness, no tingling - Integumentary Integumentary IM: no erythema - Neurological Neurological ROS: focal weakness (left upper and lower extremities), headache(s) (mild. ), no numbness, no tingling - Psychiatric Psychiatric: no anxiety, no hopelessness, no irritability - Endocrine Endocrine IM: no cold intolerance, no excessive sweating - Hematologic/Lymphatic Hematologic/Lymphatic: no lymphadenopathy - Allergic/Immunologic Allergic/Immunologic: no uticaria, no GI upset with certain foods - Constitutional Exam: Vitals: Reviewed General: Alert and oriented x4. In mild distress due to left sided weakness Cardiovascular: RRR, normal S1 & S2, no rubs, murmurs or gallops. Lungs: CTA b/l, no wheezes or crackles. Abdomen: Soft, non-tender, no rigidity. Extremities: strength 4/5 in the left upper extr, 5/5 in the right upper and lower extr. Neurological: Slight left sided facial dropping. CN II-XII intact Rest of the physical exam is non contributory - Assessment and Plan (1) Stroke-like symptoms Current Visit: Yes Status: Acute Assessment and plan: patient with a Hx of previous CVA in 2017 on aspirin. presenting to the hospital with left sided weakness since yesterday. Plan patient is off TpA window MRI of the brain consider TTE w/ saline following MRI report continue Aspirin 81mg/PO daily started on clopidogrel 75mg/po daily Lipid panel A1C Hydralazine 5mg/IV Q6HR for SBP >190 or DBP >110 PT/OT consider neurology consult pending MRI report will continue lovastatin 40mg/PO HS. (2) CAD (coronary artery disease) Current Visit: No Status: Chronic Assessment and plan: patient on aspirin 81mg/PO daily. started on clopidogrel 75mg/PO daily. Qualifiers: Coronary Disease-Associated Artery/Lesion type: [place] artery [place] vs. transplanted heart: [place] heart Associated angina: without angina Qualified Code(s): I25.10 - Atherosclerotic heart disease of [place] coronary artery without angina pectoris (3) CVA (cerebral vascular accident) Current Visit: No Status: Chronic Assessment and plan: CVA 2017. plan of care as per problem #1. Qualifiers: CVA mechanism: unspecified Qualified Code(s): I63.9 - Cerebral infarction, unspecified (4) DVT prophylaxis Current Visit: No Status: Chronic Assessment and plan: heparin subQ (5) Diabetes Current Visit: No Status: Chronic Assessment and plan: carbs controlled diet. A1c ordered. Lispro low dose sliding scale. levemir 5 units HS. Qualifiers: Diabetes mellitus type: type 2 Diabetes mellitus remote computer terminal operator insulin use: without remote computer terminal operator use Diabetes mellitus complication status: with circulatory complication Diabetes mellitus complication detail: with other circulatory complications Qualified Code(s): E11.59 - Type 2 diabetes mellitus with other circulatory complications (6) HLD (hyperlipidemia) Current Visit: No Status: Chronic Assessment and plan: patient on lovastatin 40mg/PO daily Qualifiers: Hyperlipidemia type: unspecified Qualified Code(s): E78.5 - Hyperlipidemia, unspecified (7) HTN (hypertension) Current Visit: No Status: Chronic Assessment and plan: will resume home dose of carvedilol 12.5mgPO BID. Qualifiers: Hypertension type: essential hypertension Qualified Code(s): I10 - Essential (primary) hypertension (8) СВЕТЛАНА (acute kidney injury) Current Visit: Yes Status: Acute Assessment and plan: possible due to low pre-load, patient reported being on the sun for a prolong period of time yesterday and with not addecuated oral intake. will start patient on 0.9%NS @75ml/hr x1 litter. will re-assess kidney function tomorrow if there is not improvement consider retro-peritoneal us. - Time Spent With Patient Total time spent is greater than 50% in coordination of care (as documented) at patient's floor/unit and/or counseling patient: Greater than 35 minutes (45)
[2018-09-24] MEDS ORDERED: 0.9 % Sodium Chloride 1,000 ML IVC SCH (16:00)
[2018-09-24] MEDS: Insulin LISPRO 300 UNITS/3 ML VIAL SQ SCH (17:26)
[2018-09-24] MEDS: *HR* Heparin 5,000 UNIT/ML VIAL SQ SCH (17:31)
[2018-09-24] MEDS: Aspirin Enteric Coated 81 MG Tablet PO SCH (17:34)
[2018-09-24 19:00] LABS: Estimated Average Glucose 151 mg/dl
[2018-09-25 01:15] LABS: Basophils % 0.4 %; Eosinophils # 0.3 K/mcL (0.0-0.6); Eosinophils % 3.2 %; Immature Granulocytes % 0.1 % (0-4); Lymphocytes # 1.6 K/mcL (0.6-4.6); Lymphocytes % 20.1 %; Mean Corpuscular HGB Conc 33.3 g/dL (31.6-35.5); Mean Corpuscular Hemoglobin 31.4 pg (28.0-33.3); Mean Corpuscular Volume 94.2 fL (83.0-100.0); Mean Platelet Volume 11.8 fL (9.4-12.4); Monocytes # 0.8 K/mcL (0.0-1.3); Monocytes % 10.3 %; Neutrophils # 5.1 K/mcL (1.6-8.9); Platelet Count 150 K/mcL (140-400); Red Blood Count 4.14 M/mcL (4.19-5.50); Red Cell Distribution Width 12.6 % (11.5-14.5); Segmented Neutrophils % 65.9 %; White Blood Count 7.8 K/mcL (4.3-11.1)
[2018-09-25 01:22] LABS: Prothrombin Time 11.2 Seconds (9.4-12.1)
[2018-09-25 01:25] LABS: Activated Partial Thrombo Time 32.1 Seconds (26.0-36.0)
[2018-09-25 01:33] LABS: Calcium 9.2 mg/dL (8.6-10.3); Chol/HDL Ratio 3.6 (0-4.9); Phosphorous 3.5 mg/dL (2.7-4.5)
[2018-09-25] MEDS: Insulin DETEMIR 100 UNIT/ML X5UNITS SQ SCH ×2 (06:20→21:20)
[2018-09-25] MEDS: *HR* Heparin 5,000 UNIT/ML VIAL SQ SCH ×2 (06:23→17:41)
[2018-09-25] MEDS ORDERED: 0.9 % Sodium Chloride 1,000 ML IVC SCH (08:00)
[2018-09-25] MEDS: Aspirin Enteric Coated 81 MG Tablet PO SCH (08:30)
[2018-09-25] MEDS: Insulin LISPRO 300 UNITS/3 ML VIAL SQ SCH ×3 (08:31→17:41)
--- NOTE | 2018-09-25 09:29 | Neurology - Consult Note ---
<JoceKristian Bell - Last Filed: 09/25/18 09:18> Date of Encounter: 09/25/18 Time of Encounter: 09:19 Assessment and Plan (1) CVA (cerebral vascular accident) Current Visit: Yes Status: Acute Patient presented with strokelike symptoms, acute lacunar infarct identified in posterior limb of right internal capsule Patient was previously on aspirin and lovastatin, these were continued and Plavix was added He does still have left-sided weakness but it is improved, residual right facial droop Head and neck CTA showed mild disease in bilateral carotids and P2 segment, no intervention recommended Echocardiogram pending, however infarct pattern on MRI does not appear embolic Recommend continuation of aspirin/statin/Plavix with transition to Plavix/statin at discharge Agree with PT/OT consultation and recommendations Other than echocardiogram do not anticipate any further inpatient intervention or testing, and patient can likely be discharged on medical therapy with outpatient neurology follow-up pending echocardiogram results Further recommendations per Dr. Harrington Qualifiers: CVA mechanism: unspecified Qualified Code(s): I63.9 - Cerebral infarction, unspecified (2) Cavernous malformation Current Visit: No Status: Acute Mass in right cerebral peduncle noted incidentally on brain MRI Appearance is consistent with cavernous malformation Intervention is recommended in the setting of seizure, hemorrhage, or associated neurologic deficit Since this malformation is asymptomatic observation is recommended History of Present Illness Chief complaint: stroke HPI: Mr. Snyder is a 73 year old male with past medical history of hypertension, hyperlipidemia, diabetes mellitus, coronary artery disease status post CABG, previous CVA in 2017. At home he takes aspirin and lovastatin and carvedilol. On 09/23/18 he was working outside in the sun and began to feel lightheaded, he went inside to cool off and began having left upper extremity and left lower extremity weakness. These symptoms carried over into the morning of 09/24/18 and he presented to [place]. He did not have any other associated symptoms such as slurred speech or facial droop, numbness or tingling, fever or chills, confusion or other altered mental status, chest pain or shortness of breath, abdominal pain/nausea/vomiting. Head and neck CTA were performed at [place] demonstrating mild bilateral carotid bifurcation disease and a moderate to severe short segment irregularity involving the P2 segment, but otherwise without acute abnormality. [facility] telemedicine was consulted who did not recommend TPA or vascular intervention, instead recommended transfer to [place] for stroke workup. He was admitted to the hospitalist service here, aspirin was continued Plavix was started, lovastatin 20 was increased to lovastatin 40, and MRI of the brain was ordered and neurology service was consulted. MRI of the brain demonstrated acute lacunar infarct within the posterior limb of the right internal capsule as well as a incidentally noted mass within the right cerebral peduncle consistent with a cavernoma. On my exam the patient complains of continued but improved left upper and lower extremity weakness. He reports residual right upper and lower extremity "heaviness" residual from his previous CVA in 2017. He does not follow outpatient with a neurologist. He denies any new or worsened symptoms this morning and has no acute complaints other than left upper and lower extremity weakness. Past Med Surg Social Fam HX - Past Medical History Medical history: coronary artery disease, CVA, diabetes, hyperlipidemia, hypertension, myocardial infarction Psychiatric history: no psych history - Past Surgical History Surgical History: coronary bypass (CABG) - Social History Smoking Status: Never smoker Smokeless Tobacco Status: No Alcohol use: none Drug use: none - Family History Mother Living Status: Father Living Status: Hx Family Cardiac Disorders: Yes Medications and Allergies Lovastatin [Mevacor] 20 mg PO DAILY 11/06/16 [History] Aspirin 81 mg PO DAILY 01/03/17 [History] Carvedilol 12.5 mg PO BID 01/03/17 [History] Ibuprofen [Motrin] 200 mg PO Q4-6H PRN 01/03/17 [History] Lisinopril [Zestril] 20 mg PO BID 01/03/17 [History] Mv-Mn/FA/Vit K/Lycop/Lut/Coq10 [Daily Multivitamin Capsule] 1 tab PO DAILY 01/03/17 [History] Acetaminophen/Diphenhydramine [Percogesic 325-12.5 mg Tablet] 2 each PO HS 09/24/18 [History] Aspirin [Lo-Dose Aspirin EC] 81 mg PO DAILY 09/24/18 [History] L. Acidophilus/Pectin, [place] [Acidophilus Probiotic Capsule] 1 each PO DAILY 09/24/18 [History] Sitagliptin Phosphate [Januvia] 50 mg PO DAILY 09/24/18 [History] Allergy/AdvReac Type Severity Reaction Status Date / Time No Known Allergies Allergy Verified 09/24/18 08:42 All Systems: The remainder of the systems were reviewed and are negative Review of Systems: 10 point review of systems negative except as otherwise mentioned in history of present illness. Physical Examination - Vital Signs Vital Signs: Initial Vital Signs Temp Pulse Resp BP 98.1 F 89 16 141/74 09/24/18 15:21 09/24/18 15:21 09/24/18 15:21 09/24/18 15:21 - Exam Exam: General Examination: *CONSTITUTIONAL: Alert and oriented x3, no acute distress *GENERAL APPEARANCE OF PATIENT appears healthy and well groomed *EYES: pupils equal, round, reactive to light and accommodation, conjunctiva clear without masses or ulcerations *ASSESSMENT OF MUSCLE STRENGTH IN THE UPPER AND LOWER EXTREMITIES Left deltoid, bicep, tricep, production support consultant strength 4/5. Right hip flexor, quadriceps, anterior tibialis, plantar flexion 5/5. Left hip flexor 4/5. Left quadricep, anterior tibialis, plantar flexion 5/5. *MUSCLE TONE IN THE UPPER AND LOWER EXTREMITIES normal. No abnormal movements, fasciculations or atrophy identified. Neurological: *ORIENTATION to person, situation, time and place *LANGUAGE AND FUNCTION no significant aphasia or dysarthia was noted *ATTENTION AND CONCENTRATION are normal *FUND OF KNOWLEDGE aware of current events, past history, vocabulary *MENTAL attention span and concentration normal. *CN II visual faria intact *CN III,IV, PERRLA horizontal nystagmus present, otherwise normal *CN V shows normal sensation and jaw opens symmetrically. *CN VII right lower face droop and weakness, otherwise normal and symmetrical facial movement *CN VIII shows no significant hearing loss on exam *CN IX-X palate elevated symmetrically *CN XI normal strength in the sternocleidomastoid muscles, symmetrical shoulder shrugging. *CN XII tongue protruded in the midline, with normal strength and movement. *SENSORY EXAMINATION light touch and deep pressure intact and symmetrical *GAIT intact *CEREBELLAR TESTING normal finger to nose testing *PAIN LEVEL 0/10 Results - Laboratory Findings CBC and BMP: 09/25/18 00:38 09/25/18 00:38 Abnormal lab findings: Abnormal lab results RBC 4.14 M/mcL (4.19-5.50) L 09/25/18 00:38 Sodium 134 mEq/L (136-145) L 09/25/18 00:38 Carbon Dioxide 21 mEq/L (23-29) L 09/25/18 00:38 Creatinine 1.68 mg/dL (0.70-1.30) H 09/25/18 00:38 Est GFR ( Amer) 49 (> 60) L 09/25/18 00:38 Est GFR (Non-Af Amer) 40 (> 60) L 09/25/18 00:38 Glucose 115 mg/dL (70-105) H 09/25/18 00:38 POC Glucose 130 mg/dL (70-99) H 09/25/18 08:26 Hemoglobin A1c 6.9 % (-5.6) H 09/24/18 17:31 Triglycerides 166 mg/dL (< 150) H 09/25/18 00:38 VLDL Cholesterol, Calc 33 mg/dL (< 31) H 09/25/18 00:38 Consult Discharge Plan - Plan Referrals: Rosa Augustine CNP [Primary Care Provider] - <Giana Harrington I - Last Filed: 09/25/18 12:00> Date of Encounter: 09/25/18 Assessment and Plan (1) CVA (cerebral vascular accident) Current Visit: Yes Status: Acute Pt was seen and examined, my medical decision was reviewed with the Resident Physician, I agree with the documented findings, disposition and treatment plan, as described except to the extent set forth below patient is stable did have a lacunar infarct internal capsule likely related to small vessel disease Suggest continue on Plavix at the time of discharge only along with statin If echogram is negative okay to discharge from neurology standpoint Giana Harrington MD Qualifiers: CVA mechanism: unspecified Qualified Code(s): I63.9 - Cerebral infarction, unspecified History of Present Illness HPI: Mr. Snyder is a 73 year old male All Systems: The remainder of the systems were reviewed and are negative Physical Examination - Vital Signs Vital Signs: Initial Vital Signs Temp Pulse Resp BP 98.1 F 89 16 141/74 09/24/18 15:21 09/24/18 15:21 09/24/18 15:21 09/24/18 15:21 Results - Laboratory Findings CBC and BMP: 09/25/18 00:38 09/25/18 00:38 Abnormal lab findings: Abnormal lab results RBC 4.14 M/mcL (4.19-5.50) L 09/25/18 00:38 Sodium 134 mEq/L (136-145) L 09/25/18 00:38 Carbon Dioxide 21 mEq/L (23-29) L 09/25/18 00:38 Creatinine 1.68 mg/dL (0.70-1.30) H 09/25/18 00:38 Est GFR ( Amer) 49 (> 60) L 09/25/18 00:38 Est GFR (Non-Af Amer) 40 (> 60) L 09/25/18 00:38 Glucose 115 mg/dL (70-105) H 09/25/18 00:38 POC Glucose 130 mg/dL (70-99) H 09/25/18 08:26 Hemoglobin A1c 6.9 % (-5.6) H 09/24/18 17:31 Triglycerides 166 mg/dL (< 150) H 09/25/18 00:38 VLDL Cholesterol, Calc 33 mg/dL (< 31) H 09/25/18 00:38
--- NOTE | 2018-09-25 13:25 | Internal Med Progress Note ---
Hospitalist Progress Note - Encounter Date of Encounter: 09/25/18 Time of Encounter: 13:23 - Subjective Interval History: I have seen and evaluated the patient at bedside. patient reported improvement on the weakness of the left upper extremity but reports he is still having problems holding a spoon or a pen. denies headache, nausea, vomiting or abdomina l pain. denies chest pain. - Exam Vitals: Temp Pulse Resp BP Pulse Ox 98.3 F 72 16 117/54 95 09/25/18 10:14 09/25/18 10:14 09/25/18 10:14 09/25/18 10:14 09/25/18 10:14 Exam: Vitals: Reviewed General: Alert and oriented x4. In no distress Cardiovascular: RRR, normal S1 & S2, no rubs, murmurs or gallops. Lungs: CTA b/l, no wheezes or crackles. Abdomen: Soft, non-tender, no rigidity. NABS in all 4 quadrants Extremities: strength 4/5 in the left upper extr, 5/5 in the right upper and lower extr. Neurological: CN II-XII intact Rest of the physical exam is non contributory - Assessment and Plan (1) CVA (cerebral vascular accident) Current Visit: Yes Status: Acute Assessment and Plan: MR/MR head/brain wo con IMPRESSION: Acute lacunar infarct within the posterior limb of right internal capsule. 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 The findings were sent to the [facility]iology Results Communication [facility] at 4:57 pm on 09/24/2018to be communicated to a licensed caregiver. Plan continue dual antiplatelets therapy with aspirin and plavix on a statin PT/OT ordered neurology recommendations appreciated TTE pending. (2) CAD (coronary artery disease) Current Visit: No Status: Chronic Assessment and Plan: patient on dual anti-platelet therapy. (3) Diabetes Current Visit: No Status: Chronic Assessment and Plan: blood sugar is well controlled on short and long acting insulin coverage. (4) HLD (hyperlipidemia) Current Visit: No Status: Chronic Assessment and Plan: continue lovastatin 40mg/PO daily (5) HTN (hypertension) Current Visit: No Status: Chronic Assessment and Plan: Blood pressure is well controlled on carvedilol 12.5 mg by mouth twice a day. (6) СВЕТЛАНА (acute kidney injury) Current Visit: Yes Status: Acute Assessment and Plan: slightly improvement on his kidney function following IV hydration. continue IV fluids on 0.95NS @75ml/hr retroperitoneal us ordered to r/o obstruction as a possible cause of the СВЕТЛАНА. will re-assess kidney function tomorrow morning DVT Prophylaxis: On heparin subQ - Summary of Assessment and Plan Summary of Assessment and Plan: Patient to remain in the hospital due to СВЕТЛАНА and acute lacunar stroke. - Time Spent with Patient Total time spent is greater than 50% in coordination of care (as documented) at patient's floor/unit and/or counseling patient: Greater than 35 minutes (40) Plan of Care Discussed with: patient (and the nurse.) Internal Medicine: Result - Labs CBC & Chem 7: 09/25/18 00:38 09/25/18 00:38 Labs: Short CBC 09/25/18 Range/Units 00:38 WBC 7.8 (4.3-11.1) K/mcL Hgb 13.0 (12.9-16.9) g/dL Hct 39.0 (37.5-50.1) % Plt Count 150 (140-400) K/mcL Neutrophils # 5.1 (1.6-8.9) K/mcL BMP 09/25/18 00:38 Sodium 134 L Potassium 4.0 Chloride 102 Carbon Dioxide 21 L BUN 21 Creatinine 1.68 H Glucose 115 H Calcium 9.2 - ABG Interpretation ABG results: PT/INR, D-dimer PT 11.2 Seconds (9.4-12.1) 09/25/18 00:38 - Impressions Impressions Brain MRI 09/24/18 15:20 IMPRESSION: Acute lacunar infarct within the posterior limb of right internal capsule. 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 The findings were sent to the Radiology Results Communication Center at 4:57 pm on 09/24/2018to be communicated to a licensed caregiver. D/ / Cullen Quevedo MD / Cullen Quevedo MD Interpreting Provider: Cullen Quevedo MD Consult Discharge Plan - Plan Referrals: Rosa Augustine, ORACLE DBA [Primary Care Provider] - (1) CVA (cerebral vascular accident) Qualifiers: CVA mechanism: unspecified Qualified Code(s): I63.9 - Cerebral infarction, unspecified (2) CAD (coronary artery disease) Qualifiers: Coronary Disease-Associated Artery/Lesion type: [place] artery [place] vs. transplanted heart: [place] heart Associated angina: without angina Qualified Code(s): I25.10 - Atherosclerotic heart disease of [place] coronary artery without angina pectoris (3) Diabetes Qualifiers: Diabetes mellitus type: type 2 Diabetes mellitus nursing home insulin use: without dry room operator use Diabetes mellitus complication status: with circulatory complication Diabetes mellitus complication detail: with other circulatory complications Qualified Code(s): E11.59 - Type 2 diabetes mellitus with other circulatory complications (4) HLD (hyperlipidemia) Qualifiers: Hyperlipidemia type: unspecified Qualified Code(s): E78.5 - Hyperlipidemia, unspecified (5) HTN (hypertension) Qualifiers: Hypertension type: essential hypertension Qualified Code(s): I10 - Essential (primary) hypertension
[2018-09-26] MEDS: *HR* Heparin 5,000 UNIT/ML VIAL SQ SCH (05:00)
[2018-09-26 05:23] LABS: Calcium 9.2 mg/dL (8.6-10.3); Magnesium 1.8 mg/dL (1.6-2.6); Phosphorous 3.1 mg/dL (2.7-4.5); Potassium 4.2 mEq/L (3.5-5.1)
[2018-09-26 07:29] VITALS: BP 139/73
--- NOTE | 2018-09-26 09:09 | Discharge Summary ---
- NOTES TO OUTPATIENT PROVIDER Notes to Outpatient Provider: Have a repeat BMP within a week of hospital discharge. creat at dc 1.58 from 1.99 on admission Date of Encounter: 09/26/18 Time of Encounter: 09:07 - Discharge Diagnosis (1) CVA (cerebral vascular accident) Priority: Primary Status: Acute Assessment and Plan: MR/MR head/brain wo con IMPRESSION: Acute lacunar infarct within the posterior limb of right internal capsule. Qualifiers: CVA mechanism: unspecified Qualified Code(s): I63.9 - Cerebral infarction, unspecified (2) CAD (coronary artery disease) Priority: Secondary Status: Chronic Qualifiers: Coronary Disease-Associated Artery/Lesion type: [place] artery [place] vs. transplanted heart: [place] heart Associated angina: without angina Qualified Code(s): I25.10 - Atherosclerotic heart disease of [place] coronary artery without angina pectoris (3) Diabetes Priority: Secondary Status: Chronic Qualifiers: Diabetes mellitus type: type 2 Diabetes mellitus extermination supervisor insulin use: without residential use Diabetes mellitus complication status: with circulatory complication Diabetes mellitus complication detail: with other circulatory complications Qualified Code(s): E11.59 - Type 2 diabetes mellitus with other circulatory complications (4) HLD (hyperlipidemia) Priority: Secondary Status: Chronic Qualifiers: Hyperlipidemia type: unspecified Qualified Code(s): E78.5 - Hyperlipidemia, unspecified (5) HTN (hypertension) Priority: Secondary Status: Chronic Qualifiers: Hypertension type: essential hypertension Qualified Code(s): I10 - Essential (primary) hypertension (6) СВЕТЛАНА (acute kidney injury) Priority: Secondary Status: Acute Hospital course: Mr. Snyder is a 73 year old male PMH of CVA in 2017, HTN, HLD, and DM. Patient transferred to the hospital from [place] where he presented due to left sided weakness. Patient admitted to the hospital due to stroke like symptoms r/o CVA and СВЕТЛАНА. CT/CT angio neck IMPRESSION: Mild bilateral carotid bifurcation disease with calcification but no evidence of hemodynamic stenosis. No evidence of vertebrobasilar significant disease. MR/MR head/brain wo con IMPRESSION: Acute lacunar infarct within the posterior limb of right internal capsule. 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 Patient was on aspirin, clopidogrel was added, TTE with agitated saline unremarkable. PT/OT evaluated the patient and recommended home PT. Patient is hemodynamically stable to be discharged home, creat has trended down to 1.58 from 1.99 on admission, recommended to follow up with his pcp within a week of hospital discharge. - Time Spent with Patient Total time spent providing and/or coordinating discharge services: Time spent: Greater than 30 minutes (35) - Discharge Medications Prescriptions: New Clopidogrel [Plavix] 75 mg PO DAILY 30 Days #30 tablet Continued Lovastatin [Mevacor] 20 mg PO DAILY Mv-Mn/FA/Vit K/Lycop/Lut/Coq10 [Daily Multivitamin Capsule] 1 tab PO DAILY Lisinopril [Zestril] 20 mg PO BID Carvedilol 12.5 mg PO BID Sitagliptin Phosphate [Januvia] 50 mg PO DAILY L. Acidophilus/Pectin, [place] [Acidophilus Probiotic Capsule] 1 each PO DAILY Aspirin [Lo-Dose Aspirin EC] 81 mg PO DAILY Home Medications: Lovastatin [Mevacor] 20 mg PO DAILY 11/06/16 [History] Carvedilol 12.5 mg PO BID 01/03/17 [History] Lisinopril [Zestril] 20 mg PO BID 01/03/17 [History] Mv-Mn/FA/Vit K/Lycop/Lut/Coq10 [Daily Multivitamin Capsule] 1 tab PO DAILY 01/03/17 [History] Aspirin [Lo-Dose Aspirin EC] 81 mg PO DAILY 09/24/18 [History] L. Acidophilus/Pectin, [place] [Acidophilus Probiotic Capsule] 1 each PO DAILY 09/24/18 [History] Sitagliptin Phosphate [Januvia] 50 mg PO DAILY 09/24/18 [History] Clopidogrel [Plavix] 75 mg PO DAILY 30 Days #30 tablet 09/26/18 [Rx] Allergies/Adverse Reactions: Allergy/AdvReac Type Severity Reaction Status Date / Time No Known Allergies Allergy Verified 09/25/18 16:41 Date of admission: 09/25/18 13:30 Primary care physician: Rosa Augustine Consults: 09/24/18 15:18 Consult to Physical Therapy [CONS] Routine Comment: Evaluate, develop and implement POC Reason for Consult: stroke like symptoms Does patient have active BEDREST order?: No Is patient medically & hemodynamically stable?: Yes 09/24/18 17:20 Consult to Neurology [CONS] Routine Consulting Provider: Neurology [facility] Reason for Consult: acute lacunar stroke Call Completed: No - Constitutional Vitals: Temp Pulse Resp BP Pulse Ox 98.4 F 69 15 139/73 96 09/26/18 07:20 09/26/18 07:20 09/26/18 07:20 09/26/18 07:20 09/26/18 07:20 Exam: Vitals: Reviewed General: Alert and oriented x4. In no distress Cardiovascular: RRR, normal S1 & S2, no rubs, murmurs or gallops. Lungs: CTA b/l, no wheezes or crackles. Abdomen: Soft, non-tender, no rigidity. NABS in all 4 quadrants Extremities: strength 4/5 in the left upper extr, 5/5 in the right upper and lower extr. Neurological: CN II-XII intact Rest of the physical exam is non contributory - Patient Status Disposition: Home, Self-Care Condition: Good Functional capacity at discharge: independent ambulation Overall status at discharge: patient is progressing back to baseline - Discharge Instructions Follow Up With: Rosa Augustine CNP [Primary Care Provider] - - Diet and Activity Activity: resume usual activities as tolerated Diet: diabetic diet, low salt diet
--- NOTE | 2018-09-26 09:47 | Neurology Progress Note ---
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 No evidence of vertebrobasilar significant disease. MR head/brain wo con showed Acute lacunar infarct within the posterior limb of right internal capsule. 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 Patient was on aspirin, clopidogrel was added, TTE with agitated saline unremarkable. Objective - Constitutional Vitals: Temp Pulse Resp BP Pulse Ox 98.4 F 69 15 139/73 96 09/26/18 07:20 09/26/18 07:20 09/26/18 07:20 09/26/18 07:20 09/26/18 07:20 - Neurological Exam Motor Examination: Present: grossly full strength in all extremities Sensation intact: Present: intact Reflexes: Biceps: 1+, Triceps: 1+, Brachioradialis: 1+, Patella: 1+, Achilles: 1+ Mental Status Examination: Present: awake, alert, oriented to person, oriented to place Cranial nerve examination: Present: PERRL, EOMI Results - Laboratory Findings CBC and BMP: 09/25/18 00:38 09/26/18 03:41 Abnormal lab findings: Abnormal lab results RBC 4.14 M/mcL (4.19-5.50) L 09/25/18 00:38 Sodium 132 mEq/L (136-145) L 09/26/18 03:41 Carbon Dioxide 22 mEq/L (23-29) L 09/26/18 03:41 Creatinine 1.58 mg/dL (0.70-1.30) H 09/26/18 03:41 Est GFR ( Amer) 52 (> 60) L 09/26/18 03:41 Est GFR (Non-Af Amer) 43 (> 60) L 09/26/18 03:41 Glucose 126 mg/dL (70-105) H 09/26/18 03:41 POC Glucose 212 mg/dL (70-99) H 09/25/18 17:41 Hemoglobin A1c 6.9 % (-5.6) H 09/24/18 17:31 Calculated Osmolality 278 (280-300) L 09/26/18 03:41 Triglycerides 166 mg/dL (< 150) H 09/25/18 00:38 VLDL Cholesterol, Calc 33 mg/dL (< 31) H 09/25/18 00:38 Consult Discharge Plan - Plan Instructions: Diabetes Mellitus Type 2 in Adults (DC), Chronic Hypertension (DC) Referrals: Rosa Augustine, YOUTH DEVELOPMENT SPECIALIST [Primary Care Provider] - (Unable to schedule appointmemt due to office being closed. Please call Friday to schedule hospital follow up appointment for 7-10 days from date of discharge. ) Prescriptions: Clopidogrel [Plavix] 75 mg PO DAILY 30 Days #30 tablet
--- NOTE | 2018-09-26 10:28 | Physician Discharge Referral ---
Home Health/Hosp Referral Info Transfer to: Home Health - Diagnosis (1) CVA (cerebral vascular accident) Priority: Primary Status: Acute (2) CAD (coronary artery disease) Priority: Secondary Status: Chronic (3) Diabetes Priority: Secondary Status: Chronic (4) HLD (hyperlipidemia) Priority: Secondary Status: Chronic (5) HTN (hypertension) Priority: Secondary Status: Chronic (6) СВЕТЛАНА (acute kidney injury) Priority: Secondary Status: Acute - Respiratory Orders None Smoking Cessation: Smoking cessation has been advised. For more information, call the [place] Tobacco Quit Line at 9-841-NBWB-NOW. - Diet/Nutrition Diet/Nutrition Orders: Regular - Activity Activity Orders: Ambulate - Services Needed Following services are medically necessary services: Physical Therapy, Occupational Therapy - Transfer Medications Prescriptions: Clopidogrel [Plavix] 75 mg PO DAILY 30 Days #30 tablet Home Medications: Lovastatin [Mevacor] 20 mg PO DAILY 11/06/16 [History] Carvedilol 12.5 mg PO BID 01/03/17 [History] Lisinopril [Zestril] 20 mg PO BID 01/03/17 [History] Mv-Mn/FA/Vit K/Lycop/Lut/Coq10 [Daily Multivitamin Capsule] 1 tab PO DAILY 01/03/17 [History] Aspirin [Lo-Dose Aspirin EC] 81 mg PO DAILY 09/24/18 [History] L. Acidophilus/Pectin, [place] [Acidophilus Probiotic Capsule] 1 each PO DAILY 09/24/18 [History] Sitagliptin Phosphate [Januvia] 50 mg PO DAILY 09/24/18 [History] Clopidogrel [Plavix] 75 mg PO DAILY 30 Days #30 tablet 09/26/18 [Rx] Allergies/Adverse Reactions: Allergy/AdvReac Type Severity Reaction Status Date / Time No Known Allergies Allergy Verified 09/25/18 16:41 Certification: Further, I certify that my clinical findings support that this patient is homebound (i.e. absences from home require considerable and taxing effort and are for medical reasons or denominational services or infrequently or short duration when for other reasons) because: Homebound Reason: Patient requires assistance of a person or device to safely leave home Attestation: My signature below is to certify that this patient is under my care and that I, or nurse practitioner, or a physician's assistant finance manager working with me, has a [id number] encounter with this patient.
== END 2018-09-26 11:35 | disposition home or self-care (01) | DRG 65 ==
LOC: CDU → 3BNU 09-25 18:21
PROVIDERS: ADMIT Internal Medicine; ATTEND Internal Medicine